=== PATIENT | female | born 1945 | race African-American/Black ===

== ENCOUNTER 2016-08-21 11:25 | Emergency (ER) | payer OTHER ==
[2016-08-21] MEDS ORDERED: ASPIRIN 81 MG CHEWABLE TAB PO ONE (11:40)
--- NOTE | 2016-08-21 11:42 | CPEKG ---
Heart Rate: 77 RR Interval: 779 P-R Interval: 101 QRSD Interval: 72 QT Interval: 364 QTC Interval: 412 P [place]: 0 QRS [place]: 45 T Wave [place]: 50 EKG Severity - BORDERLINE ECG - EKG Impression: SINUS RHYTHM EKG Impression: SHORT MS INTERVAL, ACCELERATED AV CONDUCTION Electronically Signed By: Eric Riddle 25-Aug-2016 22:23:12
[2016-08-21] MEDS ORDERED: LABETALOL HCL 5 MG/ML 20 ML MDV IVP ONE (12:10)
--- NOTE | 2016-08-21 12:13 | UCPHY ---
H & P Patient Type: Established Chief Complaint Nursing Narrative: shoulder pain the other day on right side and today left shoulder pain and tingling in arm and shaky feeling since 9am this am. Denies f/cough/ Denies recent travel Time Seen by Provider: 08/21/16 11:45 HPI/ROS: 70-year-old female presents complaining of right shoulder and upper back pain that began yesterday and now states she is having left shoulder and left upper back pain. She denies nausea vomiting she denies shortness of breath she denies cough she denies fevers or chills she denies chest pain. Review of systems General no fever no chills no weakness HEENT no eye pain no eye discharge. No eye redness, no sore throat Respiratory no cough, no shortness of breath Cardiac no chest pain, no peripheral edema GI no abdominal pain, no diarrhea, no constipation, no nausea, no vomiting no flank pain, no hematuria, no dysuria Musculoskeletal positive myalgias, no joint pain Heme no easy bruising, no easy bleeding Endo no polyuria, no polydipsia Skin no rashes, no pruritus Neuro no syncope, no dizziness, no headaches Psych is no suicidal ideation, no homicidal ideation Source: Patient, Family Exam Limitations: No limitations - Personal History Current Tetanus/Diphtheria Vaccine: Yes - Medical/Surgical History Hx Asthma: No Hx Chronic Respiratory Disease: No Hx Diabetes: No Hx Cardiac Disease: Yes Hx Renal Disease: No Hx Cirrhosis: No Hx Alcoholism: No Hx HIV/AIDS: No Hx Splenectomy or Spleen Trauma: No Other PMH: [facility]. FLU . T+a, cholesterol , hernia repair ,. Breast ca lumpectomy - Family History Significant Family History: No pertinent family hx - Social History Smoking Status: Never smoked Alcohol Use: None Drug Use: None - Physical Exam Exam: 70-year-old female in no acute distress nontoxic appearance afebrile HEENT atraumatic normocephalic, extraocular muscles intact, anicteric Oropharynx negative for erythema negative exudate, tolerating her own secretions Neck supple no meningismus, positive bilateral trapezius tenderness to palpation no swelling no ecchymosis no crepitus Lungs clear to auscultation bilaterally Heart regular rate and rhythm without murmur rub or gallop Abdomen nondistended normoactive bowel sounds soft nontender Back no CVA tenderness, no step-offs, no spinal tenderness Extremities no cyanosis clubbing or edema Neuro alert and oriented, no focal deficits Constitutional: Initial Vital Signs Heart Rate 80 08/21/16 11:35 Respiratory Rate 16 08/21/16 11:35 Blood Pressure 182/109 H 08/21/16 11:35 O2 Sat (%) 96 08/21/16 11:35 O2 Delivery Mode Room Air Allergies/Adverse Reactions: amoxicillin Allergy (Verified 08/21/16 11:38) codeine Allergy (Verified 08/21/16 11:38) prednisone Allergy (Verified 08/21/16 11:38) Home Medications: Medication Instructions Recorded Albuterol 08/21/16 Breast Ca Med 08/21/16 Flovent 110 MCG Hfa MDI (*) 08/21/16 Lipitor 08/21/16 Medical Decision Making - Diagnostics EKG Interpretation: Normal sinus rhythm, no ischemia, no prior EKGs for comparison ED Course/Re-evaluation: Patient seen and evaluated for bilateral shoulder pain. EKG normal sinus rhythm Chest x-ray normal, no evidence of widened mediastinum , no infiltrate Labs D-dimer negative Troponin at 0 our in 2 hours normal CBC within normal limits CMP normal Impression Musculoskeletal upper back and shoulder pain Hypertension possibly secondary to pain Plan Advised patient to follow up with primary care physician in 1-2 days for recheck of blood pressure Advised to return for any further problems - Data Points Laboratory Results: Laboratory Results 08/21/16 12:05 08/21/16 12:05 08/21/16 08/21/16 14:12 12:05 WBC 4.41 10^3/uL (3.80-9.50) RBC 4.58 10^6/uL (4.18-5.33) Hgb 13.9 g/dL (12.6-16.3) Hct 40.7 % (38.0-47.0) MCV 88.9 fL (81.5-99.8) MCH 30.3 pg (27.9-34.1) MCHC 34.2 g/dL (32.4-36.7) RDW 12.2 % (11.5-15.2) Plt Count 247 10^3/uL (150-400) MPV 9.8 fL (8.7-11.7) Neut % (Auto) 55.9 % (39.3-74.2) Lymph % (Auto) 32.2 % (15.0-45.0) [place] % (Auto) 9.1 % (4.5-13.0) Eos % (Auto) 2.3 % (0.6-7.6) Baso % (Auto) 0.5 % (0.3-1.7) Nucleat RBC Rel Count 0.0 % (0.0-0.2) Absolute Neuts (auto) 2.47 10^3/uL (1.70-6.50) Absolute Lymphs (auto) 1.42 10^3/uL (1.00-3.00) Absolute Monos (auto) 0.40 10^3/uL (0.30-0.80) Absolute Eos (auto) 0.10 10^3/uL (0.03-0.40) Absolute Basos (auto) 0.02 10^3/uL (0.02-0.10) Absolute Nucleated RBC 0.00 10^3/uL (0-0.01) Immature Gran % 0.0 % (0.0-1.1) Immature Gran # 0.00 10^3/uL (0.00-0.10) PT 13.0 SEC (12.0-15.0) INR 1.00 (0.83-1.16) APTT 30.4 SEC (23.0-38.0) D-Dimer 0.34 ug/mLFEU (0.00-0.50) Sodium 139 mEq/L (134-144) Potassium 4.4 mEq/L (3.5-5.2) Chloride 104 mEq/L (97-110) Carbon Dioxide 26 mEq/l (22-31) Anion Gap 9 mEq/L (8-16) BUN 19 mg/dL (7-23) Creatinine 0.9 mg/dL (0.6-1.0) Estimated GFR > 60 Glucose 99 mg/dL (70-100) Calcium 9.6 mg/dL (8.5-10.4) Total Bilirubin 0.6 mg/dL (0.1-1.4) AST 25 IU/L (14-46) ALT 19 IU/L (9-52) Alkaline Phosphatase 47 IU/L (38-126) Troponin I < 0.012 ng/mL < 0.012 ng/mL (0-0.034) (0-0.034) Total Protein 7.3 g/dL (6.3-8.2) Albumin 3.8 g/dL (3.5-5.0) Medications Given: Discontinued Medications Aspirin (Aspirin) 324 mg PO EDNOW ONE Stop: 08/21/16 11:41 Last Admin: 08/21/16 11:40 Dose: 324 mg Labetalol HCl (Trandate Injection) 10 mg IVP ONCE ONE Stop: 08/21/16 12:11 Last Admin: 08/21/16 12:25 Dose: 10 mg Departure - Departure Disposition: Home, Routine, Self-Care Clinical Impression: Upper back pain, Hypertension Condition: Good Instructions: Hypertension (ED), Musculoskeletal Pain (ED) Additional Instructions: See your doctor in 1-2 days for follow-up checkup of your elevated blood pressure today, as well as continued advice for your upper back and shoulder muscular pain. Return to emergency if your pain is markedly worsened, or you are having difficulty breathing. Referrals: JIA MANDUJANO [Primary Care Provider] - As per Instructions - PQRS PQRS Measurement: 134: Depression screening and followup, PRIME MD-PHQ2 (12 years and older) Over the last 2 weeks, how often have you been bothered by any of the following problems? 1. Feeling down, depressed, or hopeless? 2. Little interest or pleasure in doing things? Patient answered no to both 1 and 2 130: Documentation of medications. Reviewed all patient medications, doses, route and frequency. 226: Do you smoke? No. 47: 65 and older: Advanced care planning. Patient designates surrogate decision maker as spouse.. [Patient has advanced directive.] 51: 18 years old and older with diagnosis of COPD, spirometry performance. [Patient has no history of COPD 52: 18 years old and older with COPD and symptoms of COPD or FEV1<60% predicted prescribed a B Agonist. [Spirometry not performed; equipment not available.]
[2016-08-21 12:17] LABS: ADD DIFF? NO; ADD MORPH? NO; ADD SCAN? NO; ATYPICAL LYMPHOCYTE FLAG 10 (0-99); FRAGMENT RBC FLAG 0 (0-99); HEMATOCRIT 40.7 % (38.0-47.0); HEMOGLOBIN 13.9 g/dL (12.6-16.3); LEFT SHIFT FLG 0 (0-99); LIPEMIA HEMOLYSIS FLAG 90 (0-99); MEAN CELL HEMOGLOBIN 30.3 pg (27.9-34.1); MEAN CELL HEMOGLOBIN CONCENTR. 34.2 g/dL (32.4-36.7); MEAN CELL VOLUME 88.9 fL (81.5-99.8); MEAN PLATELET VOLUME 9.8 fL (8.7-11.7); PLATELET CLUMPS FLAG 0 (0-99); PLATELET COUNT 247 10^3/uL (150-400); RED BLOOD CELL COUNT 4.58 10^6/uL (4.18-5.33); RED CELL DISTRIBUTION WIDTH 12.2 % (11.5-15.2)
[2016-08-21 12:34] LABS: APTT 30.4 SEC (23.0-38.0)
[2016-08-21 12:35] LABS: ALANINE AMINOTRANSFERASE 19 IU/L (9-52); ALBUMIN 3.8 g/dL (3.5-5.0); ALKALINE PHOSPHATASE 47 IU/L (38-126); ANION GAP 9 mEq/L (8-16); ASPARTATE AMINOTRANSFERASE 25 IU/L (14-46); BILIRUBIN,TOTAL 0.6 mg/dL (0.1-1.4); CALCIUM 9.6 mg/dL (8.5-10.4); CARBON DIOXIDE 26 mEq/l (22-31); CHLORIDE 104 mEq/L (97-110); CREATININE 0.9 mg/dL (0.6-1.0); GLOMERULAR FILTRATION RATE > 60; GLUCOSE 99 mg/dL (70-100); POTASSIUM 4.4 mEq/L (3.5-5.2); SODIUM 139 mEq/L (134-144); TOTAL PROTEIN 7.3 g/dL (6.3-8.2)
[2016-08-21 12:47] LABS: TROPONIN I < 0.012 ng/mL (0-0.034)
--- NOTE | 2016-08-21 13:14 | DX ---
PA and lateral chest x-ray 1251 hours. History: Bilateral shoulder pain. Hypertension. Evaluate for possible widened mediastinum. Findings: Heart size and pulmonary vasculature are normal. There is moderate atherosclerotic calcific ation of the aortic arch level. There is no significant widening of the mediastinum. There is no cons olidation, effusion, or pneumothorax. Osseous structures appear to be intact. Impression: 1. No active cardiac pulmonary disease seen. 2. No underlying lymphadenopathy appreciated.
[2016-08-21 15:32] VITALS: BP 145/99; PULSE 77; RESP 15; O2SAT 97
== END 2016-08-21 15:32 | disposition home or self-care (01) ==
LOC: CED 11:25
DX: I10 Essential (primary) hypertension (principal); M25.511 Pain in right shoulder; M25.512 Pain in left shoulder; M54.6 Pain in thoracic spine
CPT/HCPCS: 71020; 93005; 96374; G0463; J3490; 80053-PO; 84484-PO; 85025-PO; 85378-PO; 85610-PO; 85730-PO; 93010-PO; 99215-PO

== ENCOUNTER 2017-08-28 10:52 | Emergency (ER) | payer OTHER ==
[2017-08-28 10:58] VITALS: TEMP 98.6
[2017-08-28] MEDS ORDERED: IPRATROPIUM/ALBUTEROL 3 ML DEYVIAL IH ONE (11:02)
[2017-08-28] MEDS ORDERED: predniSONE 20 MG TAB PO ONE (11:08)
--- NOTE | 2017-08-28 11:11 | EDPHY ---
H & P Stated Complaint: short of breath worsening since flu dx on Friday Time Seen by Provider: 08/28/17 11:03 HPI/ROS: CHIEF COMPLAINT: Dyspnea HISTORY OF PRESENT ILLNESS: The patient is a 71-year-old female with a history of asthma. She was diagnosed flu positive on Friday and started on Tamiflu. Over the last couple of days however her wheezing has worsened. She is using albuterol at home every 4 hr. She has audible wheezing. She also has a cough productive of yellow sputum. No fever. She states that her flu symptoms have improved. REVIEW OF SYSTEMS: Constitutional: See HPI EENTM: denies: blurred vision, double vision, nose congestion Respiratory: See HPI Cardiac: denies: chest pain, irregular heart rate, lightheadedness, palpitations Gastrointestinal/Abdominal: denies: abdominal pain, diarrhea, nausea, vomiting, blood streaked stools Genitourinary: denies: dysuria, frequency, hematuria, pain Musculoskeletal: denies: joint pain, muscle pain Skin: denies: lesions, rash, jaundice, bruising Neurological: denies: headache, numbness, paresthesia, tingling, dizziness, weakness Hematologic/Lymphatic: denies: blood clots, easy bleeding, easy bruising Immunologic/allergic: denies: HIV/AIDS, transplant EXAM: GENERAL: Well-appearing, well-nourished and in no acute distress. HEAD: Atraumatic, normocephalic. EYES: Pupils equal round and reactive to light, extraocular movements intact, sclera anicteric, conjunctiva are normal. ENT: TMs normal, nares patent, oropharynx clear without exudates. Moist mucous membranes. NECK: Normal range of motion, supple without lymphadenopathy or JVD. LUNGS: Distant breath sounds, bilateral expiratory wheezing HEART: Regular rate and rhythm without murmurs, rubs or gallops. ABDOMEN: Soft, nontender, normoactive bowel sounds. No guarding, no rebound. No masses appreciated. BACK: No CVA tenderness, no spinal tenderness, step-offs or deformities EXTREMITIES: Normal range of motion, no pitting or edema. No clubbing or cyanosis. NEUROLOGICAL: Cranial nerves II through XII grossly intact. Normal speech, normal gait. 5/5 strength, normal movement in all extremities, normal sensation PSYCH: Normal mood, normal affect. SKIN: Warm, dry, normal turgor, no visible rashes or lesions. Source: Patient, Family - Personal History Current Tetanus/Diphtheria Vaccine: Yes - Medical/Surgical History Hx Asthma: Yes Hx Chronic Respiratory Disease: No Hx Diabetes: No Hx Cardiac Disease: Yes Hx Renal Disease: No Hx Cirrhosis: No Hx Alcoholism: No Hx HIV/AIDS: No Hx Splenectomy or Spleen Trauma: No Other PMH: PCP [place]. T+a, cholesterol , hernia repair,. Breast ca lumpectomy - Social History Smoking Status: Never smoked Alcohol Use: Sober Constitutional: Initial Vital Signs Temperature (C) 37 C 08/28/17 10:55 Heart Rate 100 08/28/17 10:55 Respiratory Rate 40 H 08/28/17 10:55 Blood Pressure 150/98 H 08/28/17 10:55 O2 Sat (%) 96 08/28/17 10:55 O2 Delivery Mode Room Air Allergies/Adverse Reactions: amoxicillin Allergy (Verified 08/28/17 10:58) codeine Allergy (Verified 08/28/17 10:58) prednisone Allergy (Verified 08/28/17 10:58) Home Medications: Medication Instructions Recorded Albuterol 08/21/16 Flovent 110 MCG Hfa MDI (*) 08/21/16 Lipitor 08/21/16 Bp Med 08/28/17 Cancer Med 08/28/17 Detrol 08/28/17 Herbals/Supplements -Info Only 08/28/17 Premarin 08/28/17 Zyrtec 08/28/17 predniSONE 60 mg PO DAILY #9 tab 08/28/17 Medical Decision Making - Diagnostics Imaging Results: Imaging Impressions Chest X-Ray 08/28/17 11:08 Impression: No acute pulmonary disease. Imaging: Discussed imaging studies w/ scallop binder Radiologist ED Course/Re-evaluation: The patient is saturating 98% on room air but still has audible wheezing. Her respiratory rate has decreased. We will give her 2nd treatment. She has received the steroids. We discussed her x-ray which is reassuring. 1pm She is feeling much better. She is asking to go home. She promises to return if her breathing worsens. She is sating 97% Differential Diagnosis: Partial list of the Differential diagnosis considered include but were not limited to; asthma exacerbation, influenza, bronchitis and although unlikely based on the history and physical exam, I also considered pneumonia, CHF, acute coronary disease. I discussed these differential diagnoses and the plan with the patient as well as the usual and expected course. The patient understands that the diagnosis is provisional and that in medicine we are not always correct and that further workup is often warranted. Usual and customary warnings were given. All of the patient's questions were answered. The patient was instructed to return to the emergency department should the symptoms at all worsen or return, otherwise to followup with the physician as we discussed. - Data Points Medications Given: Discontinued Medications Albuterol (Proventil Neb) 3 ml IH EDNOW ONE Stop: 08/28/17 12:08 Last Admin: 08/28/17 12:11 Dose: 3 ml Albuterol/Ipratropium (Duoneb) 3 ml IH EDNOW ONE Stop: 08/28/17 11:03 Last Admin: 08/28/17 11:07 Dose: 3 ml Prednisone (Prednisone) 60 mg PO EDNOW ONE Stop: 08/28/17 11:09 Last Admin: 08/28/17 11:23 Dose: 60 mg Departure - Departure Disposition: Home, Routine, Self-Care Clinical Impression: Influenza Exacerbation of asthma Qualifiers: Asthma severity: moderate Asthma persistence: persistent Qualified Code(s): J45.41 - Moderate persistent asthma with (acute) exacerbation Condition: Fair Instructions: Influenza (DC), Bronchospasm (ED) Referrals: JIA MANDJUANO [Primary Care Provider] - As per Instructions Prescriptions: predniSONE 60 mg PO DAILY #9 tab
[2017-08-28] MEDS ORDERED: ALBUTEROL 3 ML DEYVIAL IH ONE (12:07)
[2017-08-28 12:55] VITALS: BP 135/77; PULSE 114; RESP 22
[2017-08-28 13:18] VITALS: O2SAT 98
== END 2017-08-28 13:06 | disposition home or self-care (01) ==
LOC: CED 10:52
DX: J45.41 Moderate persistent asthma with (acute) exacerbation (principal); J11.1 Influenza due to unidentified influenza virus with other respiratory manifestations
CPT/HCPCS: 71046; 99283; J7512; J7613